=== PATIENT | female | born 1945 | race Caucasian/White ===

== ENCOUNTER 2025-02-12 17:08 | Observation (INO) | payer MEDICARE, SELFPAY ==
[2025-02-12] VITALS (12 sets, daily range): BP systolic 173–240; BP diastolic 79–104; PULSE 47–63; RESP 14–19; TEMP 36.4–36.7; O2SAT 95–98
--- NOTE | ~2025-02-12 | CT_ITS ---
History: Headaches PROCEDURE: CT head without contrast. COMPARISON: None TECHNIQUE: Axial imaging of the head performed from the skull base to the vertex without IV contrast. Sagittal a nd coronal reformations obtained. DLP: 681 mGy-cm FINDINGS: The ventricles are enlarged. The dilatation of the ventricles is proportional to the degree of sulcal prominence, not uncommon in the senescent brain. Decreased attenuation is identified within the periventricular white matter, likely secondary to micr ovascular ischemic disease, in a patient of this age. There is no mass, mass effect or midline shift. There is no abnormal extra-axial fluid collection or intracranial hemorrhage. Visualized paranasal sinuses are clear. The mastoid air cells are well aerated. No acute displaced fractures within the overlying cranium. Impression: No acute intracranial hemorrhage or suspicious mass effect. Reviewed, dictated and finalized at location A. Impression: No acute intracranial hemorrhage or suspicious mass effect.
--- NOTE | ~2025-02-12 | CT_ITS ---
CLINICAL INDICATION: History of abdominal aortic aneurysm. Renal artery stenosis suspected. COMPARISON: Reference is made to a bilateral renal ultrasound, performed the same day. TECHNIQUE: Computed tomography angiography (CTA) of the chest was performed with 100 mL Omnipaque-350 intravenous contrast timed to evaluate the abdominal aorta and mesenteric vasculature. Coronal maxim um intensity projection 3D-reconstructions were created by the technologist. The dose-length product (DLP) was 288.79 mGy-cm. Automated exposure control and iterative reconstruction technique were emplo yed. FINDINGS/OBSERVATIONS: Visualized lower thorax:Centrilobular emphysematous change. The heart is enlarged, without pericardial effusion. Liver: The liver enhances homogeneously, and is not enlarged. Gallbladder and biliary system: The gallbladder is only minimally distended, and otherwise unremarkab le. Pancreas: Pancreas demonstrates homogeneous enhancement without ductal dilatation. Spleen: The spleen enhances homogeneously and is not enlarged. Kidneys: Large bilateral renal cysts, better characterized on the ultrasound examination, performed t he same day. Adrenal glands: Unremarkable Gastrointestinal tract: Extensive fecal stasis within the colon. Appendix:The appendix is not definitively visualized. However, no pericecal inflammatory change is id entified suggest the presence of acute appendicitis. Vasculature: Aneurysmal dilatation of the juxtarenal abdominal aorta with significant mural thrombus. The aneurysm (excluding the mural thrombus) measures 3.5 x 3.7 x 8.9 cm (anterior to posterior x med ial to lateral x cranial to caudal dimension). No calcified atherosclerotic disease is identified within the origins of the bilateral renal arteries , as detailed above. Lymph nodes: No pathologically enlarged or morphologically suspicious lymph nodes within the root of the mesentery or the retroperitoneum. Pelvic structures:The bladder is minimally distended. The uterus is moderately enlarged for a patient of this age. The uterus is retroverted and retroflexed. Body wall and musculoskeletal: Age appropriate degenerative disease within the lumbosacral spine. 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 No renal artery stenosis. Reviewed, dictated and finalized at location A.
--- NOTE | ~2025-02-12 | XR_ITS ---
CHEST RADIOGRAPH CLINICAL HISTORY: HTN . COMPARISON: None available TECHNIQUE: Single portable view of the chest. FINDINGS The cardiomediastinal silhouette is unremarkable. The lungs are clear. IMPRESSION: No focal infiltrate or effusion. Reviewed, dictated and finalized at location A.
--- NOTE | ~2025-02-12 | MR_ITS ---
EXAMINATION: MR brain/brain stem wo con DATE: 02/14/2025 10:24 INDICATION: Hypertensive crisis altered mental status. Assess for stroke. TECHNIQUE: Magnetic resonance imaging (MRI) of the brain and brainstem was performed without intraven ous contrast. Sequences included sagittal and axial T1-weighted SE, axial diffusion-weighted FS SE, a xial 3D SWAN, axial T2-weighted FLAIR, and axial T2-weighted FSE. Apparent diffusion coefficient (ADC ) maps were created. COMPARISON: CT dated 02/12/2025 FINDINGS: There are no areas of restricted diffusion to suggest acute infarction. There is encephalomalacia con sistent with chronic small infarct in the right cerebral hemisphere. There are a few foci of suscepti bility artifact consistent with sequela of old blood products in the adjacent right cerebellar hemisp here. Additional small foci susceptibility artifact medially the cerebellar vermis, bilaterally in th e ben, in the bilateral basal ganglia and bilateral parietal lobes, consistent with sequela of chron ic microhemorrhage likely related to reported history of hypertension. No acute intracranial hemorrha ge or abnormal intracranial mass lesion. There are scattered areas of nonspecific increased T2-weight ed signal intensity in the cerebral and pontine white matter, predominantly involving the deep and pe riventricular white matter. There are no intraparenchymal signal abnormalities seen on the other puls e sequences. Symmetric prominence of the sulci consistent with mild age-appropriate diffuse cerebral volume loss. The ventricles are symmetric and normal in size. There are no abnormal extra-axial fluid collections. Flow voids are seen in the cerebral arteries on the T2-weighted sequences consistent wi th their expected patency. Visualized orbits and soft tissues are unremarkable. IMPRESSION: 1. Small old right cerebellar infarct. No acute intracranial process. 2. Numerous foci of susceptibility artifact bilateral parietal lobes and basal ganglia, ben and cere bellum consistent with sequela of chronic microhemorrhage likely related to provided history of hyper tension. 3. Age-related changes including mild diffuse volume loss and mild scattered cerebral and pontine whi te matter T2 hyperintensity consistent with chronic small vessel ischemic disease. Reviewed, dictated and finalized at location A. IMPRESSION: 1. Small old right cerebellar infarct. No acute intracranial process. 2. Numerous foci of susceptibility artifact bilateral parietal lobes and basal ganglia, ben and cerebellum consistent with sequela of chronic microhemorrhage likely related to provided history of hypertension. 3. Age-related changes including mild diffuse volume loss and mild scattered ce rebral and pontine white matter T2 hyperintensity consistent with chronic small vessel ischemic disease.
--- NOTE | ~2025-02-12 | US_ITS ---
CAROTID ULTRASOUND Ordering provider: New George MD History: . CVA . Comparison: None. Technique: Grayscale and color Doppler ultrasound examination of the carotid and vertebral artery sys tems bilaterally. Maximum peak systolic velocity (PSV) / end diastolic velocity (EDV) measurements we re obtained. FINDINGS: RIGHT: --Proximal COMMON CAROTID ARTERY: PSV is 42.6 cm/s. EDV is 6.3 cm/s. --Middle COMMON CAROTID ARTERY: PSV is 51.7 cm/s. EDV is 15.4 cm/s. --Distal COMMON CAROTID ARTERY: PSV is 51 cm/s. EDV is 18.9 cm/s. --EXTERNAL CAROTID ARTERY: PSV is 68.3 cm/s. --INTERNAL CAROTID ARTERY PROXIMAL: PSV is 62.2 cm/s. EDV is 21.5 cm/s. --INTERNAL CAROTID ARTERY MID: PSV is 97.3 cm/s. EDV is 27 cm/s. --INTERNAL CAROTID ARTERY DISTAL: PSV is 94.1 cm/s. EDV is 29 cm/s. --VERTEBRAL ARTERY: PSV is 51.1 cm/s. Antegrade flow with normal waveform. --SYSTOLIC ICA/CCA: 1.9 --ATHEROMATOUS DISEASE: Mild. LEFT: --Proximal COMMON CAROTID ARTERY: PSV is 58.4 cm/s. EDV is 14.2 cm/s. --Mid COMMON CAROTID ARTERY: PSV is 64.5 cm/s. EDV is 15.7 cm/s. --Distal COMMON CAROTID ARTERY: PSV is 52.3 cm/s. EDV is 16.7 cm/s. --EXTERNAL CAROTID ARTERY: PSV is 69.4 cm/s. --INTERNAL CAROTID ARTERY PROXIMAL: PSV is 89.1 cm/s. EDV is 24 cm/s. --INTERNAL CAROTID ARTERY MID: PSV is 58.4 cm/s. EDV is 19.1 cm/s. --INTERNAL CAROTID ARTERY DISTAL: PSV is 60.9 cm/s. EDV is 17.9 cm/s. --VERTEBRAL ARTERY: PSV is 35.5 cm/s. Antegrade flow with normal waveform. --SYSTOLIC ICA/CCA: 1.7 --ATHEROMATOUS DISEASE: Mild. --OTHER: None. IMPRESSION: 1. Normal bilateral carotids. 2. Antegrade flow demonstrated within both vertebral arteries. Reviewed, dictated and finalized at location A.
--- NOTE | ~2025-02-12 | US_ITS ---
US renal BI Ordering provider: New George MD History: . HTN . Comparison: None. Technique: Ultrasound bilateral kidneys. Findings: RIGHT KIDNEY: Measures 8.7x 5.6x 4.9 cm in length which is normal in size. Simple cyst is seen in the upper pole which measures 1.1 x 1.2 x 1.2 cm.. No renal mass or visualized echogenic stones. Otherwi se, normal echotexture and contour. No hydronephrosis. Normal renal cortical thickness. LEFT KIDNEY: Measures 8.4x 4.7x 1.9 cm in length which is normal in size. Inferior pole simple cyst i s seen measuring 9.8 x 7.9 x 5.2 cm. Inferior pole cyst also seen measuring 1.1 x 1.1 x 0.9 cm. Stone in the upper pole is seen measuring 0.4 x 0.4 x 0.5 cm.. No renal mass. Otherwise, normal echotextur e and contour. No hydronephrosis. Normal renal cortical thickness. BLADDER: Normal. Ureteral jets were seen bilaterally. IMPRESSION: Bilateral renal cysts with the largest in the left kidney lower pole. Left kidney stone with no hydronephrotic changes. Reviewed, dictated and finalized at location A.
--- NOTE | 2025-02-12 20:25 | ECG_ITS ---
Test Date: 2025-02-12 20:38:25 Measurements Intervals [place] Rate: 50 P: -54 [place]: 158 QRS: -36 QRSD: 98 T: 64 QT: 447 QTc: 408 Interpretive Statements SINUS RHYTHM LEFT VENTRICULAR HYPERTROPHY AND ST-T CHANGE [VOLTAGE CRITERIA PLUS ST/T ABNORMALITY] No previous ECG available for comparison Electronically Signed On 02-13-2025 13:59:01 CDT by Ranjan Martines M.D.
[2025-02-12] MEDS: niCARdipine 20 MG/200 ML 20 MG/200 ML BAG 50 MG IV CONT (20:33)
--- NOTE | 2025-02-12 20:34 | ED.GENADULT ---
HPI - General Adult General Chief complaint: Recheck/Abnormal Lab/Rx Stated complaint: elevated BP Time Seen by Provider: 02/12/25 20:20 History of Present Illness HPI narrative: 79-year-old female presenting to the emergency department for evaluation for hypertension. Patient reports that she does take medication for her blood pressure but is unsure what she takes. Patient thinks she has been getting her medications. Patient does complain headache prior to arrival. Patient's initial blood pressure in the emergency department was 240 systolic but did improved to 212 systolic without medications. Related Data Home Medications ?Medication ?Instructions ?Recorded ?Confirmed ?Last Taken ?Type acetaminophen 325 mg capsule 650 mg PO BID PRN fever or pain 02/13/25 02/13/25 Unknown History atenolol 25 mg tablet 25 mg PO DAILY 02/13/25 02/13/25 02/12/25 History atorvastatin 10 mg tablet 10 mg PO QPM 02/13/25 02/13/25 02/12/25 History donepezil 5 mg tablet 5 mg PO DAILY 02/13/25 02/13/25 02/12/25 History duloxetine 60 mg capsule,delayed 60 mg PO DAILY 02/13/25 02/13/25 02/12/25 History release losartan 100 mg tablet 100 mg PO DAILY 02/13/25 02/13/25 02/12/25 History Allergies Allergy/AdvReac Type Severity Reaction Status Date / Time Penicillins Allergy Unknown Unknown Verified 02/13/25 00:53 Review of Systems Review of Systems: All systems reviewed & are unremarkable except as noted in HPI and below PMFSH Social History Social History Smoking packs per day: 1 Smoking cigarettes per day: 20.0 Years smoked: 50 Smoking pack-years: 50.00 Smoking status: Former smoker Tobacco type: cigarettes and e-cigarettes/vaping Alcohol intake: former Substance use: never Do You Feel Safe in your Home?: Yes Lack of Transportation: No Lack of Food: Never True Current Housing: I Have Housing Concerned About Future Housing: No Difficulty Paying Gas/Electric Bills: No Difficulty Paying for Meds: No Currently Unemployed: No Education: Don't Know Difficulty w/ Childcare or Family Care: No Spiritual care concerns: No Exam Narrative: APPEARANCE: Well appearing, no pain, no distress, well-nourished. HEAD: normocephalic, atraumatic. EYES: PERRLA/EOMI, conjunctivae clear. NOSE: Normal no drainage EARS:TMS clear with good light reflex. THROAT: Pharynx clear, no exudate. NECK: Supple. No adenopathy, no masses. RESPIRATORY: Airway patent, respirations nonlabored. Clear to auscultation bilaterally, no rales, rhonchi, wheezing. CARDIOVASCULAR: Regular rate and rhythm without murmurs rubs or gallops. ABDOMINAL: Soft, nontender, nondistended, normal bowel sounds MUSCULOSKELETAL: Moves all extremities. Strength/ROM intact, No edema, No calf tenderness. NEURO: Alert. Cranial nerves II through XII intact. Good gait. Good coordination SKIN: Warm, dry. Normal Color Course Vital Signs Vital signs: Vital Signs Temperature 98.1 F 02/12/25 17:55 Pulse Rate 52 L 02/12/25 17:55 Respiratory Rate 16 02/12/25 17:55 Blood Pressure 217/95 H 02/12/25 17:55 Pulse Oximetry 98 02/12/25 17:55 Temperature 98.0 F 02/13/25 07:43 Pulse Rate 66 02/13/25 07:43 Respiratory Rate 20 02/13/25 07:43 Blood Pressure 172/77 H 02/13/25 07:43 Pulse Oximetry 95 02/13/25 07:43 Oxygen Delivery Room Air 02/13/25 04:00 Medical Decision Making [facility] Narrative Medical decision making narrative: 79-year-old female presents emergency department for evaluation for hypertensive urgency. At time of initial evaluation patient was declining any headache. Patient's initial blood pressure was 240 systolic. Patient's blood pressure dropped to approximately 160 on the Cardene drip and this was stopped. Patient's blood pressure then we increased to approximately 190 but did initially respond to hydralazine. Patient was given her p.o. dose of losartan. Case was discussed with hospitalist patient was accepted for admission to the IMU. Patient is currently afebrile with no leukocytosis and hemoglobin of 12.3. Patient has no acute abnormalities on her electrolytes or creatinine. Head CT was negative and chest x-ray shows no acute cardiopulmonary abnormality. Differential Diagnosis Differential Diagnosis: Hypertensive urgency, hypertensive crisis, ACS, subdural hematoma, subarachnoid hemorrhage, intraparenchymal bleed, cardiomegaly, pulmonary Vital Signs Vital Signs: Vital Signs Temperature 98.1 F 02/12/25 17:55 Pulse Rate 52 L 02/12/25 17:55 Respiratory Rate 16 02/12/25 17:55 Blood Pressure 217/95 H 02/12/25 17:55 Pulse Oximetry 98 02/12/25 17:55 Temperature 98.0 F 02/13/25 07:43 Pulse Rate 66 02/13/25 07:43 Respiratory Rate 20 02/13/25 07:43 Blood Pressure 172/77 H 02/13/25 07:43 Pulse Oximetry 95 02/13/25 07:43 Oxygen Delivery Room Air 02/13/25 04:00 Lab Data Lab results reviewed: Yes I reviewed the patient's lab results. 02/12/25 21:31 02/12/25 21:31 Labs: Lab Results 02/12/25 02/12/25 Range/Units 21:31 21:31 WBC 5.6 (4.5-10.0) K/mm3 RBC 4.16 L (4.2-5.4) M/mm3 Hgb 12.3 (12.0-15.0) g/dL Hct 39.3 (37.0-47.0) % MCV 94.5 (80-100) fl MCH 29.6 (26-34) pg MCHC 31.3 L (32-36) g/dl RDW 14.4 (11.5-14.5) % Plt Count 183 (150-375) k/mm3 MPV 10.4 (7.4-10.4) fl Immature Gran % (Auto) 0.5 (0-0.5) % Neut % (Auto) 51.6 (45.5-73.1) % Lymph % (Auto) 38.0 (18.3-44.2) % [place] % (Auto) 8.3 (2.6-8.5) % Eos % (Auto) 1.2 (0-4.4) % Baso % (Auto) 0.4 (0.2-1.2) % Lymph # (Auto) 2.14 (0.9-3.2) K/mm3 [place] # (Auto) 0.5 (0.1-0.6) K/mm3 Eos # (Auto) 0.1 (0-0.3) K/mm3 Baso # (Auto) 0.0 (0.0-0.1) K/mm3 Abs Immat Gran (auto) 0.03 (0.00-0.031) K/mm3 Absolute Neuts (auto) 2.9 (1.3-6.7) K/mm3 Absolute Nucleated RBC 0.000 (0.0-0.012) K/mm3 Nucleated RBC % 0.0 (0.0-0.2) % PT 13.3 (11.1-14.7) Seconds INR 1.0 APTT 28.6 (22.3-36.8) Seconds Sodium 139 (137-145) mmol/L Potassium 3.7 (3.4-5.0) mmol/L Chloride 104 (98-107) mmol/L Carbon Dioxide 30 (22-30) mmol/L Anion Gap 5 (4-12) mmol/L BUN 20 H (7-17) mg/dL Creatinine 0.81 (0.7-1.0) mg/dL Estim Creat Clear Calc 45 ml/min Estimated GFR > 60 (59 - ) Glucose 92 (65-110) mg/dL Calcium 9.7 (8.4-10.2) mg/dL Total Bilirubin 0.7 (0.2-1.3) mg/dL AST 35 (14-36) U/L ALT 18 (6-35) U/L Alkaline Phosphatase 72 (38-126) U/L Troponin I 0.013 (0.000-0.034) ng/mL NT-Pro-B Natriuret Pep 1030 H Cancelled (19.9-100) pg/mL Total Protein 7.0 (6.3-8.2) g/dL Albumin 4.3 (3.5-5.1) g/dL Imaging Data Radiologist's impression: Impressions Chest X-Ray 02/12/25 20:44 IMPRESSION: No focal infiltrate or effusion. Head CT 02/12/25 20:51 Impression: No acute intracranial hemorrhage or suspicious mass effect. Discharge Plan Discharge Clinical Impression: Hypertensive urgency Patient Disposition: Still a Patient Condition: Serious
[2025-02-12] MEDS: hydrALAZINE HCL 20 MG/ML VIAL 10 MG IV PUSH ×2 (21:26→23:53)
[2025-02-12 21:39] LABS: Basophils Percent Auto 0.4 % (0.2-1.2); Eosinophils Absolute Auto 0.1 K/mm3 (0-0.3); Eosinophils Percent Auto 1.2 % (0-4.4); Hematocrit 39.3 % (37.0-47.0); Hemoglobin 12.3 g/dL (12.0-15.0); Immature Granulocyte Absolute 0.03 K/mm3 (0.00-0.031); Immature Granulocyte Percent A 0.5 % (0-0.5); Lymphocytes Absolute Auto 2.14 K/mm3 (0.9-3.2); Mean Corpuscular HGB Conc 31.3 g/dl (32-36); Mean Corpuscular Hemoglobin 29.6 pg (26-34); Mean Corpuscular Volume 94.5 fl (80-100); Mean Platelet Volume 10.4 fl (7.4-10.4); Monocytes Absolute Auto 0.5 K/mm3 (0.1-0.6); Monocytes Percent Auto 8.3 % (2.6-8.5); Neutrophils Absolute Auto 2.9 K/mm3 (1.3-6.7); Neutrophils Percent Auto 51.6 % (45.5-73.1); Platelet Count Result 183 k/mm3 (150-375); Red Blood Count 4.16 M/mm3 (4.2-5.4); Red Cell Distribution Width 14.4 % (11.5-14.5); White Blood Count 5.6 K/mm3 (4.5-10.0)
--- OUTSIDE RECORDS SUMMARY | 2025-02-12 21:42 | XMS_ITS | Continuity of Care Document ---
Author Organization [facility] Address [address] [place] [address] Phone Care Team Providers Care Director Internal Control Name Role Phone Aly Decker MD Unavailable Unavailable Allergies, Adverse Reactions, Alerts Substance Reaction Status Criticality Penicillins Active No Information Medications Medication Instructions Dosage Effective Dates (start - stop) Status Comments [place] 5 mg-325 mg tablet take 1-2 tablet by mouth every 4- 6 hours as needed for pain - Active Enteric Coated Aspirin 325 mg tablet,delayed release Take 1 tablet po bid with food - Active Ultram 50 mg tablet take 1-2 tablets (50MG) by mouth every 4-6 hours as needed for pain. Maximum of 8 tablets per day. - Active LISINOPRIL (unknown strength) Not Available - Active PRAVASTATIN SODIUM (unknown strength) Not Available - Active VALACYCLOVIR (unknown strength) Not Available - Active STANBACK ANALGESIC (unknown strength) Not Available - Active Procedures Procedure Date POSTOP FOLLOW-UP VISIT OFFICE/OUTPATIENT VISIT EST MU Reporting POSTOP FOLLOW-UP VISIT MU Reporting POSTOP FOLLOW-UP VISIT MU Reporting OFFICE/OUTPATIENT VISIT EST MU Reporting OFFICE/OUTPATIENT VISIT EST MU Reporting OFFICE/OUTPATIENT VISIT EST MU Reporting POSTOP FOLLOW-UP VISIT MU Reporting OFFICE/OUTPATIENT VISIT NEW Advance Directives Directive Yes / No Effective Date File Name No Information Encounters Encounter Description Practice Location Reason(s) For Visit Diagnoses Date Provider Providers Copied on Encounter [facility] , [address], [place], [address], [place] tel:[phone] [facility] Primary osteoarthritis of left kneePrimary osteoarthritis of right knee Apr- 3-201 6 Brianne Lu. [address], [place], [place], [id number] . tel: [phone] [facility] , [address] [address], [place], [address], [place] tel:[phone] [facility] Primary osteoarthritis of both knees Mar-1 8-201 6 Adarshdali Kyra. [address], [place], [place], [id number] . tel: [phone] [facility] , [address] [facility] [address] [address], [place], [address], [place] tel:[phone] [facility] Osteoarthrosis, unspecified whether generalized or localized, involving lower leg Mar-0 9-201 5 Brianne Lu. [address], [place], [place], [id number] . tel: [phone] [facility] , [address] [facility] [address], [place], [address], [place] tel:[phone] [facility] Osteoarthrosis, unspecified whether generalized or localized, involving lower leg Feb-2 6-201 5 Brianne Lu. [address], [place], [place], [address] . tel: [phone] OFFICE/OUTPAT IENT VISIT EST [facility] , [address] [facility] [address], [place], [address], [place] tel:[phone] [facility] Osteoarthrosis, unspecified whether generalized or localized, involving lower leg Feb-1 9-201 5 Brianne Lu. [address], [place], [place], [id number] . tel: [phone] Referring Provider: Evangelina Zaman, [address] [facility], [address], [place], [address]. tel:[phone] [facility] , [address], [place], [address], [place] [phone] [facility] Aftercare following surgeryKnee & lower leg pain 3 Brianne Lu. [address], [place], [place], [address] . tel: [phone] Referring Provider: Araceli Espinoza, [address] [place] [address], [address]. tel:[phone] [facility] , [address] [address], [place], [address], [place] [phone] [facility] Aftercare following surgery 3 Brianne Lu. [address], [place], [place], [address] . tel: [phone] Referring Provider: Araceli Espinoza, [address] [place] [address], [address]. tel:[phone] [facility] , [address] [address], [place], [address], [place] tel:[phone] [facility] No Information 3 Brianne Lu. [address], [place], [place], [id number] . tel: [phone] OFFICE/OUTPAT IENT VISIT EST [facility] , [address], [place], [address], [place] [phone] [facility] Tear of medial cartilage or meniscus of knee, current 3 Brianne Lu. [address], [place], [place], [id number] . tel: [phone] Referring Provider: Araceli Espinoza, [address] [place], [address]. tel:[phone] OFFICE/OUTPAT IENT VISIT EST [facility] , [address], [place], [address], [place] [phone] [facility] Osteoarthrosis, localized, primary, involving lower legOsteoarthros is, unspecified whether generalized or localized, involving lower legTear of medial cartilage or meniscus of knee, current 3 Ashliund Aly. [address], [place], [place], [id number] . tel: [phone] Referring Provider: Araceli Espinoza, [address] [place] [address], [address]. tel:[phone] OFFICE/OUTPAT IENT VISIT EST [facility] , [address] [address], [place], [address], [place] tel:[phone] [facility] Unspecified internal derangement of knee 3 Ashliund Aly. [address], [place], [place], [id number] . tel: [phone] Referring Provider: Araceli Espinoza, [address] [place] [address], [address]. tel:[phone] [facility] , [address] [address], [place], [address], [place] [phone] [facility] Osteoarthrosis, localized, primary, involving lower leg 3 Ashliund Aly. [address], [place], [place], [address] . tel: [phone] Referring Provider: Araceli Espinoza, [address] [place] [address], [address]. tel:[phone] [facility] , [address] [address], [place], [address], [place] tel:[phone] [facility] Osteoarthrosis, localized, primary, involving lower leg 3 Sigmund Aly. [address], [place], [place], [id number] . tel: [phone] OFFICE/OUTPAT IENT VISIT NEW [facility] , [address], [place], [address], [place] tel:[phone] [facility] Hypertension, UnspecifiedOste oarthrosis, unspecified whether generalized or localized, involving lower legPain in joint involving lower leg 3 Brianne Lu. [address], [place], [place], [address] . tel: [phone] Referring Provider: Araceli Espinoza, [address] [place] [address], [place], [address]. tel:[phone] Family History Family Member Type Diagnosis Age At Onset Problem (finding) Family history of Renal disease Problem (finding) Family history of hyper tension Problem (finding) Family history of malignant neoplasm of male breast Problem (finding) Family history of strok e Payers Payer name Insurance type Covered republican ID Authoriza tion(s) Medicare E2 OT [id number] [employer] [facility] E2 OT [id number] Social History Type Description Quantity Date Captured Comments Alcohol Use Details Unknown Caffeine Use Details Unknown Tobacco Use Status Smoking Status No Information Sex Female Chief Complaint And Reason For Visit No Information Reason For Referral Reason For Referral No Information Plan Of Treatment Date Type Action Status Referral Ordered: MRI ANY JT UXTR C-MATRL RT knee Appointment date/timeframe: 04/02/2013 ordered Referral Ordered: INJECTION Bilateral knee ordered Referral Ordered: RADEX KNE 3 VIEWS Bilateral ordered History Of Present Illness Encounter Date Complaint History Of Prese nt Illness No Information Functional Status Date Functional Assessmen t No Information Instructions Date Instruction Additional Infor mation Weight loss reduces stress on joints. Related to Primary osteoarthritis of left knee Benefits of Glucosamine/Chondroi tin Related to Primary osteoarthritis of left knee Weight loss reduces stress on joints. Related to Osteoarthrosis, unspecified whether generalized or localized, involving lower leg Benefits of Glucosamine/Chondroi tin Related to Osteoarthrosis, unspecified whether generalized or localized, involving lower leg Weight loss reduces stress on joints. Related to Osteoarthrosis, unspecified whether generalized or localized, involving lower leg Benefits of Glucosamine/Chondroi tin Related to Osteoarthrosis, unspecified whether generalized or localized, involving lower leg OTC anti-inflammatories (NSAIDs) Protective activity ROM as tolerated Relative rest ROM as tolerated Protective activity Discussed post-opera tive precautions Protective activity ROM as tolerated ROM as tolerated Discussed post-opera tive precautions Protective activity Relative rest ROM as tolerated Protective activity ROM as tolerated Protective activity Continue medication as prescribe d ROM as tolerated Protective activity Continue medication as prescribe d Ice as instructed Assessments Type Assessment Date assessment Primary osteoarthritis of left k nee assessment Primary osteoarthritis of right knee Patient Care Teams Name Effective Dates (start - stop) Status Members No Information
[2025-02-12 21:49] LABS: Alanine Aminotransferase 18 U/L (6-35); Albumin Level 4.3 g/dL (3.5-5.1); Alkaline Phosphatase 72 U/L (38-126); Anion Gap 5 mmol/L (4-12); Aspartate Amino Transferase 35 U/L (14-36); Bilirubin,Total 0.7 mg/dL (0.2-1.3); Blood Urea Nitrogen 20 mg/dL (7-17); Calcium 9.7 mg/dL (8.4-10.2); Carbon Dioxide 30 mmol/L (22-30); Chloride 104 mmol/L (98-107); Estimated CRCL calculation 45 ml/min; Estimated Glomerular Filt Rate > 60; Glucose 92 mg/dL (65-110); Potassium 3.7 mmol/L (3.4-5.0); Sodium 139 mmol/L (137-145)
[2025-02-12 22:05] LABS: Partial Thromboplastin Time 28.6 Seconds (22.3-36.8); Prothrombin Time 13.3 Seconds (11.1-14.7)
[2025-02-12] MEDS: LOSARTAN POTASSIUM 100 MG TABLET PO (22:26)
[2025-02-12 23:28] LABS: NT Pro B Type Natriuretic Pept 1030 pg/mL (19.9-100); Troponin I 0.013 ng/mL (0.000-0.034)
--- NOTE | 2025-02-12 23:44 | PC.NURSE ---
MD made aware of BP, refer to [facility] for medication administration.
[2025-02-13] VITALS (20 sets, daily range): BP systolic 144–175; BP diastolic 72–90; PULSE 54–71; RESP 16–20; TEMP 36.4–36.9; O2SAT 94–99; BMI 19.5
--- NOTE | 2025-02-13 | ECHO_ITS ---
Patient Info Name: Lindsey Luevano Age: 79 years : 1945 Gender: Female Ht: 66 in Wt: 128 lbs BSA: 1.64 m2 HR: 58 bpm BP: 154 / 81 mmHg Technical Quality: Fair Exam Date: 02/13/2025 10:51 AM Patient Status: O Admit Date: 02/12/2025 Exam Type: CA echo doppler color flow Complete two-dimensional, color flow and Doppler transthoracic echocardiogram is performed. Staff Referring Physician: New George Coffee Maker: Marry Thompson Attending Provider: New George Summary 1. Complete two-dimensional, color flow and Doppler transthoracic echocardiogram is performed. 2. The left ventricle is normal in size and systolic function. There is severe concentric left ventricular hypertrophy. The left ventricular ejection fraction is visually estimated to be 60-65%. There is grade 2 diastolic dysfunction. 3. The right ventricle is normal in size and systolic function. 4. There are no significant valvular abnormalities. Left Ventricle The left ventricle is normal in size and systolic function. There is severe concentric left ventricular hypertrophy. The left ventricular ejection fraction is visually estimated to be 60-65%. There is grade 2 diastolic dysfunction. Right Ventricle The right ventricle is normal in size and systolic function. Left Atria The left atrium is normal size. Right Atria The right atrium is normal size. Atrial Septum The atrial septum is not well visualized. Aortic Valve The aortic valve is not well visualized. There is no hemodynamically significant Doppler gradients across the valve. There is trace aortic regurgitation by color Doppler. Pulmonic Valve The pulmonic valve is not well visualized. There is no color Doppler evidence of pulmonic valve regurgitation. Mitral Valve The mitral valve leaflets are thickened. There is no mitral stenosis. There is no mitral regurgitation. Tricuspid Valve The tricuspid valve opens well. There is mild tricuspid regurgitation. Pericardium/Pleural Pericardium is normal in appearance with no evidence for significant pericardial effusion. Inferior Vena Cava Normal inferior vena cava with >50% collapse upon inspiration consistent with normal right atrial pressure, 3 mmHg. Aorta The aortic root at the level of the sinus of Valsalva is mildly dilated measuring 4.0 cm in diameter. Left Ventricular Outflow Tract Name Value Normal LVOT 2D LVOT Diameter 2.0 cm LVOT Doppler LVOT Peak Velocity 153 cm/s LVOT Peak Gradient 9 mmHg LVOT Mean Gradient 6 mmHg LVOT VTI 36 cm LVOT VTI/AV VTI Ratio 1.0 LVOT Stroke Volume 115 ml LVOT CO 6.3 l/min LVOT CI 3.8 l/min/m2 Pulmonic Valve Name Value Normal RVOT Doppler RVOT Peak Velocity 66 cm/s RVOT Peak Gradient 2 mmHg PV Doppler PV Peak Velocity 99 cm/s PV Peak Gradient 4 mmHg Mitral Valve Name Value Normal MV Diastolic Function MV E Peak Velocity 47 cm/s MV A Peak Velocity 94 cm/s MV E/A 0.5 MV Decel Time (PW) 256 ms MV Annular TDI MV E/e' (Septal) 21.2 MV E/e' (Lateral) 15.6 MV E/e' (Average) 18.4 Tricuspid Valve Name Value Normal TV Regurgitation Doppler TR Peak Velocity 233 cm/s TR Peak Gradient 19 mmHg Estimated PAP/RSVP RA Pressure 3 mmHg <=5 PA Systolic Pressure 25 mmHg <36 RV Systolic Pressure 25 mmHg <36 TV Annular TDI TV Lateral Crystal s' Velocity 16.9 cm/s >=9.5 Aortic Valve Name Value Normal AV Doppler AV Peak Velocity 151 cm/s AV Peak Gradient 9 mmHg AV Mean Gradient 5 mmHg AV VTI 35 cm AV Area (Cont Eq VTI) 3.3 cm2 >=3.0 AV Area (Cont Eq Bj) 3.2 cm2 AV DI (Bj) 1.02 AV Regurgitation 2D LVOT Area 3.2 cm2 Ventricles Name Value Normal LV Dimensions 2D/MM IVS Diastolic Thickness (2D) 2.2 cm 0.6-1.0 LVID Diastole (2D) 4.0 cm 3.8-5.2 LVIW Diastolic Thickness (2D) 1.0 cm 0.6-0.9 LVID Systole (2D) 2.4 cm 2.2-3.5 LVOT Diameter 2.0 cm LV Mass (2D Cubed) 256.78 g 67.00-162.00 LV Mass Index (2D Cubed) 156 g/m2 43-95 Relative Wall Thickness (2D) 0.49 <=0.42 LV Fractional Shortening/Ejection Fraction 2D/MM LV Fractional Shortening (2D) 44 % 27-45 LV EF (2D Teichholz) 72 % LV Diastolic Volume (4C MOD) 130 ml LV EF (4C MOD) 74 % LV Diastolic Volume (2C MOD) 119 ml LV EF (2C MOD) 60 % LV Diastolic Volume (BP MOD) 124 ml 46-106 LV Diastolic Volume Index (BP MOD) 76 ml/m2 29-61 LV Systolic Volume (BP MOD) 41 ml 14-42 LV Systolic Volume Index (BP MOD) 25 ml/m2 8-24 LV EF (BP MOD) 67 % 54-74 LV Diastolic Length (4C) 8.6 cm LV Systolic Length (4C) 6.8 cm LV Stroke Volume (4C MOD) 96 ml LV CO (BP MOD) 0.0 l/min LV CI (BP MOD) 0.0 l/min/m2 Atria Name Value Normal LA Dimensions LA Volume (4C A-L) 65 ml LA Volume (BP A-L) 56 ml Report Signatures
--- NOTE | 2025-02-13 00:20 | ADMGEN ---
This patient, Lindsey Luevano, was admitted to IMU Room 231-01 at 0005. Patient/family oriented to hospital policies and general routines including ID bracelet, bed and alarms, visiting hours, pain management, procedures, bathroom and other care routines, personal items, smoking policy, room service/diet, and visiting hours. Information on how to activate the Rapid Response Team has been discussed. Patient/Family are encouraged to report perceived risks to care and to ask questions if they do not understand what they are told or what they should do.
[2025-02-13 06:17] LABS: Add Urine Microscopic? NO; Appearance Urine Clear (Clear); Bilirubin Urine Negative (Negative); Blood Urine Negative (Negative); Color Urine Yellow (Yellow); Glucose Urine UA Negative (Negative); Ketones Urine Trace mg/dL (Negative); Leukocyte Esterase Ur Negative LEU/UL (Negative); Nitrate Urine Negative (Negative); Protein Urine Negative (Negative); Specific Grav Ur 1.009 (1.001-1.035); Urobilinogen Urine 0.2 mg/dL (<2.0); pH Urine 7.5 (5.0-9.0)
--- NOTE | 2025-02-13 09:12 | PM.IMHP ---
H&P: HPI History of Present Illness Date/Time: 02/13/25 09:12 Chief Complaint: Hypertension Narrative: 79-year-old female with with past medical history of hypertension, and hyperlipidemia visited ER due to hypertension emergency. Pertinent ED labs: WBC 5.6, hemoglobin 12.3, hematocrit 39.3, platelet 183, sodium 139, potassium 3.7, BUN 20, creatinine 0.8, GFR greater than 60 BNP 1030 UA no evidence of UTI Patient is admitted in the setting of hypertensive emergency. Patient presented with the systolic blood pressure into 40s. In the ED patient was started on nicardipine drip under and blood pressure dropped in approximately in 160s. Patient was given hydralazine and losartan. Patient restarted on home med and will be monitored. Although patient is AO x3 but sometimes confused. Patient reports she lives with her daughter but sometime not. Will call the family and obtain her baseline. Ordered brain MRI Review of Systems Review of Systems: All systems reviewed & are unremarkable except as noted in HPI and below PMFSH Social History Social History Smoking packs per day: 1 Smoking cigarettes per day: 20.0 Years smoked: 50 Smoking pack-years: 50.00 Smoking status: Former smoker Tobacco type: cigarettes and e-cigarettes/vaping Alcohol intake: former Substance use: never Do You Feel Safe in your Home?: Yes Lack of Transportation: No Lack of Food: Never True Current Housing: I Have Housing Concerned About Future Housing: No Difficulty Paying Gas/Electric Bills: No Difficulty Paying for Meds: No Currently Unemployed: No Education: Don't Know Difficulty w/ Childcare or Family Care: No Spiritual care concerns: No Meds Home Medications and Allergies Home Medications ?Medication ?Instructions ?Recorded ?Confirmed ?Type acetaminophen 325 mg capsule 650 mg PO BID PRN fever or pain 02/13/25 02/13/25 History atenolol 25 mg tablet 25 mg PO DAILY 02/13/25 02/13/25 History atorvastatin 10 mg tablet 10 mg PO QPM 02/13/25 02/13/25 History donepezil 5 mg tablet 5 mg PO DAILY 02/13/25 02/13/25 History duloxetine 60 mg capsule,delayed 60 mg PO DAILY 02/13/25 02/13/25 History release losartan 100 mg tablet 100 mg PO DAILY 02/13/25 02/13/25 History Allergies Allergy/AdvReac Type Severity Reaction Status Date / Time Penicillins Allergy Unknown Unknown Verified 02/13/25 00:53 Vital Signs Vital Signs - 24 hr 02/12/25 17:55 02/12/25 20:10 02/12/25 20:32 Temperature 98.1 F Pulse Rate 52 L 47 L 52 L Respiratory Rate 16 18 15 Blood Pressure 217/95 H 240/98 H 212/95 H Pulse Oximetry 98 97 97 Oxygen Delivery Room Air 02/12/25 20:33 02/12/25 20:51 02/12/25 20:56 Temperature Pulse Rate 54 L 56 L 57 L Respiratory Rate 16 Blood Pressure 212/95 H 187/79 H 187/79 H Pulse Oximetry 95 Oxygen Delivery 02/12/25 21:05 02/12/25 21:06 02/12/25 21:27 Temperature Pulse Rate 58 L 55 L 58 L Respiratory Rate 18 14 Blood Pressure 173/80 H 179/80 H 188/93 H Pulse Oximetry 95 96 Oxygen Delivery 02/12/25 23:00 02/12/25 23:28 02/12/25 23:49 Temperature 97.6 F Pulse Rate 60 62 63 Respiratory Rate 19 Blood Pressure 202/104 H 193/96 H Pulse Oximetry 95 Oxygen Delivery 02/13/25 00:20 02/13/25 00:21 02/13/25 00:22 Temperature 97.6 F Pulse Rate 65 Respiratory Rate 17 Blood Pressure 146/72 H 159/76 H 144/76 H Pulse Oximetry 98 Oxygen Delivery 02/13/25 02:00 02/13/25 03:39 02/13/25 04:00 Temperature 97.6 F Pulse Rate 64 64 Respiratory Rate 17 Blood Pressure 154/81 H Pulse Oximetry 96 Oxygen Delivery Room Air 02/13/25 04:00 02/13/25 06:00 02/13/25 07:43 Temperature 98.0 F Pulse Rate 67 68 66 Respiratory Rate 20 Blood Pressure 172/77 H Pulse Oximetry 95 Oxygen Delivery Exam Narrative: APPEARANCE: Well appearing, no pain, no distress, well-nourished. HEAD: normocephalic, atraumatic. EYES: PERRLA/EOMI, conjunctivae clear. NOSE: Normal no drainage EARS:TMS clear with good light reflex. THROAT: Pharynx clear, no exudate. NECK: Supple. No adenopathy, no masses. RESPIRATORY: Airway patent, respirations nonlabored. Clear to auscultation bilaterally, no rales, rhonchi, wheezing. CARDIOVASCULAR: Regular rate and rhythm without murmurs rubs or gallops. ABDOMINAL: Soft, nontender, nondistended, normal bowel sounds MUSCULOSKELETAL: Moves all extremities. Strength/ROM intact, No edema, No calf tenderness. NEURO: Alert. Cranial nerves II through XII intact. Good gait. Good coordination SKIN: Warm, dry. Normal Color H&P: Results Labs Labs: Short CBC 02/12/25 Range/Units 21:31 WBC 5.6 (4.5-10.0) K/mm3 Hgb 12.3 (12.0-15.0) g/dL Hct 39.3 (37.0-47.0) % Plt Count 183 (150-375) k/mm3 BMP 02/12/25 21:31 Sodium 139 Potassium 3.7 Chloride 104 Carbon Dioxide 30 BUN 20 H Creatinine 0.81 Glucose 92 Calcium 9.7 Cardiac Enzymes 02/12/25 Range/Units 21:31 Troponin I 0.013 (0.000-0.034) ng/mL Liver Function 02/12/25 Range/Units 21:31 Total Bilirubin 0.7 (0.2-1.3) mg/dL AST 35 (14-36) U/L ALT 18 (6-35) U/L Alkaline Phosphatase 72 (38-126) U/L Albumin 4.3 (3.5-5.1) g/dL Urine 02/13/25 Range/Units 06:01 Urine Color Yellow (Yellow) Urine Appearance Clear (Clear) Urine pH 7.5 (5.0-9.0) Ur Specific [place] 1.009 (1.001-1.035) Urine Protein Negative (Negative) mg/dL Urine Glucose (UA) Negative (Negative) mg/dL Assessment and Plan Assessment and plan (1) Hypertensive urgency: Code(s): I16.0 - Hypertensive urgency Status: Acute Assessment and Plan: Received Nicardipine drip Continue home med Head CT: No acute intracranial hemorrhage or suspicious mass effect. EKG: Ectopic atrial bradycardia . Left axis deviation Neuro check q.4 hours Avoid drastic lowering of blood pressure more than 25-30% in 1st 24 hours Hydralazine 10 mg IV blood pressure greater than 160/90 If recurrent vomiting/any change in mental status stat CT Avoid a labetalol due to bradycardia Echocardiogram pending DVT prophylaxis Lovenox 40 mg subQ (2) Metabolic encephalopathy: Code(s): G93.41 - Metabolic encephalopathy Status: Acute Assessment and Plan: Order vitamin B12 and folic acid Ordered TSH, syphilis, HIV Ordered brain MRI Baseline dementia Continue home dose donepezil 5 mg p.o. q.d. Plan DVT prophylaxis Lovenox 40 mg subQ daily Full code Hospitalist [facility] Advance Care Plan I have confirmed that the patient's Advanced Care Plan is present, code status is documented, or surrogate decision maker is listed in patient medical record.: Yes Medication Reconciliation I have utilized all available resources to obtain, update and review the patients current medications (includes all prescriptions, OTC, herbals, cannabis, and nutritional supplements).: Yes
[2025-02-13] MEDS: LOSARTAN POTASSIUM 100 MG TABLET PO (09:35)
[2025-02-13] MEDS: DULoxetine HCL 60 MG CAPSULE.DR PO (09:35)
[2025-02-13] MEDS: atenoloL 25 MG TABLET PO (09:35)
[2025-02-13] MEDS: DONEPEZIL HCL 5 MG TABLET PO (09:36)
[2025-02-13] MEDS: ATORVASTATIN 10 MG TABLET PO (18:18)
[2025-02-14] VITALS (13 sets, daily range): BP systolic 140–200; BP diastolic 66–93; PULSE 50–67; RESP 16–18; TEMP 36.2–36.8; O2SAT 92–99
[2025-02-14 04:08] LABS: Hematocrit 35.6 % (37.0-47.0); Hemoglobin 11.5 g/dL (12.0-15.0); Mean Corpuscular HGB Conc 32.3 g/dl (32-36); Mean Corpuscular Hemoglobin 29.9 pg (26-34); Mean Corpuscular Volume 92.5 fl (80-100); Mean Platelet Volume 9.7 fl (7.4-10.4); Platelet Count Result 187 k/mm3 (150-375); Red Blood Count 3.85 M/mm3 (4.2-5.4); Red Cell Distribution Width 14.4 % (11.5-14.5); White Blood Count 5.7 K/mm3 (4.5-10.0)
[2025-02-14 04:17] LABS: Alanine Aminotransferase 16 U/L (6-35); Albumin Level 3.7 g/dL (3.5-5.1); Alkaline Phosphatase 61 U/L (38-126); Anion Gap 5 mmol/L (4-12); Aspartate Amino Transferase 32 U/L (14-36); Bilirubin,Total 0.8 mg/dL (0.2-1.3); Blood Urea Nitrogen 23 mg/dL (7-17); Calcium 9.6 mg/dL (8.4-10.2); Carbon Dioxide 30 mmol/L (22-30); Chloride 105 mmol/L (98-107); Estimated CRCL calculation 40 ml/min; Estimated Glomerular Filt Rate > 60; Glucose 94 mg/dL (65-110); Potassium 3.4 mmol/L (3.4-5.0); Sodium 140 mmol/L (137-145)
[2025-02-14 04:46] LABS: Syphilis IgG/IgM Antibody Negative (Negative)
[2025-02-14 04:59] LABS: HIV 1/2 Ab P24 Ag Result Negative (Negative)
[2025-02-14 05:25] LABS: Folic Acid > 20.0 ng/mL (2.76->20)
[2025-02-14 06:39] LABS: Free T4 Free Thyroxine Reflex 1.22 ng/dL (0.78-2.19)
[2025-02-14 07:44] LABS: Total Triiodothyronine (T3) 1.21 NG/ML (0.97-1.69)
[2025-02-14] MEDS: atenoloL 25 MG TABLET PO (08:07)
[2025-02-14] MEDS: ENOXAPARIN 40 MG/0.4 ML SYRINGE SUB-Q (08:08)
[2025-02-14] MEDS: LOSARTAN POTASSIUM 100 MG TABLET PO ×2 (08:08→21:00)
[2025-02-14] MEDS: DONEPEZIL HCL 5 MG TABLET PO (08:08)
[2025-02-14] MEDS: DULoxetine HCL 60 MG CAPSULE.DR PO (08:08)
[2025-02-14] MEDS: amLODIPine BESYLATE 5 MG TABLET PO (09:16)
[2025-02-14] MEDS: ATORVASTATIN 10 MG TABLET PO (17:24)
[2025-02-15 06:00] VITALS: BP 147/88; PULSE 58; RESP 17; TEMP 36.4; O2SAT 99
[2025-02-15] MEDS: LOSARTAN POTASSIUM 100 MG TABLET PO (10:24)
[2025-02-15] MEDS: amLODIPine BESYLATE 5 MG TABLET PO (10:24)
[2025-02-15] MEDS: DULoxetine HCL 60 MG CAPSULE.DR PO (10:25)
[2025-02-15] MEDS: DONEPEZIL HCL 5 MG TABLET PO (10:25)
[2025-02-15 10:27] VITALS: PULSE 53
[2025-02-15 13:40] VITALS: BP 150/85; PULSE 58; RESP 16; TEMP 36.3; O2SAT 96
--- NOTE | 2025-02-15 15:14 | PM.DS ---
DS: Admitting Diagnosis Discharge Date 02/15/2025 Admitting Diagnosis Hypertensive emergency DS: Discharge Diagnosis Discharge Diagnosis (1) Hypertensive urgency: Code(s): I16.0 - Hypertensive urgency Status: Acute Assessment and Plan: Please refer to hospital course for brief summary Received Nicardipine drip Continue home med Head CT: No acute intracranial hemorrhage or suspicious mass effect. EKG: Ectopic atrial bradycardia . Left axis deviation Neuro check q.4 hours Avoid drastic lowering of blood pressure more than 25-30% in 1st 24 hours Hydralazine 10 mg IV blood pressure greater than 160/90 If recurrent vomiting/any change in mental status stat CT Avoid a labetalol due to bradycardia Echocardiogram pending DVT prophylaxis Lovenox 40 mg subQ (2) Metabolic encephalopathy: Code(s): G93.41 - Metabolic encephalopathy Status: Acute Assessment and Plan: Order vitamin B12 and folic acid Ordered TSH, syphilis, HIV Ordered brain MRI Baseline dementia Continue home dose donepezil 5 mg p.o. q.d. DS: Summary Hospital Course Hospital Course: 79-year-old female with with past medical history of hypertension, and hyperlipidemia visited ER due to hypertension emergency. Pertinent ED labs: WBC 5.6, hemoglobin 12.3, hematocrit 39.3, platelet 183, sodium 139, potassium 3.7, BUN 20, creatinine 0.8, GFR greater than 60 BNP 1030 UA no evidence of UTI Patient is admitted in the setting of hypertensive emergency. Patient presented with the systolic blood pressure into 40s. In the ED patient was started on nicardipine drip under and blood pressure dropped in approximately in 160s. Patient was given hydralazine and losartan. Patient restarted on home med and will be monitored. Although patient is AO x3 but sometimes confused. Patient reports she lives with her daughter but sometime not. Will call the family and obtain her baseline. Discussed with daughter who reported patient lives in a memory care unit. Performed brain MRI which shows:1. Small old right cerebellar infarct. No acute intracranial process. 2. Numerous foci of susceptibility artifact bilateral parietal lobes and basal ganglia, ben and cerebellum consistent with sequela of chronic microhemorrhage likely related to provided history of hypertension. 3. Age-related changes including mild diffuse volume loss and mild scattered cerebral and pontine white matter T2 hyperintensity consistent with chronic small vessel ischemic disease Renal ultrasound: Bilateral renal cysts with the largest in the left kidney lower pole. Left kidney stone with no hydronephrotic changes. CT abdomen/pelvis:Juxtarenal abdominal aortic aneurysm measuring 3.7 cm in anterior to posterior dimension. No renal artery stenosis. In regards to hypertension patient medication schedule has been changed. Advised to give atenolol 25 mg p.o. q.d. in the morning and losartan 100 mg p.o. HS and added amlodipine 5 mg p.o. q.d. in the morning. Patient needs strict BP control due to abdominal aortic aneurysm. 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 Patient needs to follow-up closely with the vascular surgeon. Unable to start anticoagulation due to episodes of severe hypertension which can lead to bleeding. Explained the risk and benefits of not starting the anticoagulation with the family and agrees with the plan. Status at Discharge Cognitive/behavioral status at discharge: Stable Time Spent with Patient Time attestation: Total time spent providing and/or coordinating discharge services: 45 minutes Exam Narrative: APPEARANCE: Well appearing, no pain, no distress, well-nourished. HEAD: normocephalic, atraumatic. EYES: PERRLA/EOMI, conjunctivae clear. NOSE: Normal no drainage EARS:TMS clear with good light reflex. THROAT: Pharynx clear, no exudate. NECK: Supple. No adenopathy, no masses. RESPIRATORY: Airway patent, respirations nonlabored. Clear to auscultation bilaterally, no rales, rhonchi, wheezing. CARDIOVASCULAR: Regular rate and rhythm without murmurs rubs or gallops. ABDOMINAL: Soft, nontender, nondistended, normal bowel sounds MUSCULOSKELETAL: Moves all extremities. Strength/ROM intact, No edema, No calf tenderness. NEURO: Alert. Cranial nerves II through XII intact. Good gait. Good coordination SKIN: Warm, dry. Normal Color DS: Data Imaging Radiologist's impression: ITS Impressions Chest X-Ray 02/12/25 20:44 IMPRESSION: No focal infiltrate or effusion. Head CT 02/12/25 20:51 Impression: No acute intracranial hemorrhage or suspicious mass effect. Brain MRI 02/14/25 10:34 IMPRESSION: 1. Small old right cerebellar infarct. No acute intracranial process. 2. Numerous foci of susceptibility artifact bilateral parietal lobes and basal ganglia, ben and cerebellum consistent with sequela of chronic microhemorrhage likely related to provided history of hypertension. 3. Age-related changes including mild diffuse volume loss and mild scattered cerebral and pontine white matter T2 hyperintensity consistent with chronic small vessel ischemic disease. Renal Ultrasound 02/14/25 10:36 IMPRESSION: Bilateral renal cysts with the largest in the left kidney lower pole. Left kidney stone with no hydronephrotic changes. Abdomen/Pelvis CTA 02/14/25 23:47 IMPRESSION: Juxtarenal abdominal aortic aneurysm measuring 3.7 cm in anterior to posterior dimension. No renal artery stenosis. Discharge Plan Discharge Attending physician on discharge: New George Discharging Clinician: New George Patient Disposition: [place] Residential/Asst Living Activity: as tolerated Diet: heart healthy Discharge Instructions: Patient needs to closely follow-up with vascular surgeon due to abdominal aortic aneurysm with mural thrombus. Check blood pressure 1 to 2 times a day. Record and bring into your doctor for review. Call your doctor if your blood pressure is greater than 180/110 or less than 90/45. Walk with cane or other assist device. Take precautions to avoid falls. Rise slowly from a lying or sitting position. Pause before standing or walking. Contact your doctor or call 911 and come to the Emergency Room if you have any type of trauma, lightheadedness with standing or other worrisome symptoms. Avoid NSAIDs (ibuprofen, naproxen, Aleve). Tylenol is safe to take. Follow-up with your primary care provider in 1-2 weeks. Please call for appointment. Follow-up with Cardiology in 2-4 weeks. Please call for an appointment. Thank you for using [facility] for your health care needs. Patient Instructions: Antibiotic Form, Hypertensive Crisis (GEN), Hypertension (GEN) Patient Language: Citizen Of [place] Stand Alone Forms: General Discharge Information Follow-up/Referrals: PHYSICIAN NOT ON STAFF,NONSTAFF [Primary Care Provider] - Discharge Medications: New losartan 100 mg tablet 100 mg PO QPM Qty: 60 0RF amlodipine [Norvasc] 5 mg Tablet 5 mg PO DAILY Qty: 30 0RF Continued atenolol 25 mg tablet 25 mg PO DAILY donepezil 5 mg tablet 5 mg PO DAILY atorvastatin 10 mg tablet 10 mg PO QPM duloxetine 60 mg capsule,delayed release(DR/EC) 60 mg PO DAILY acetaminophen 325 mg capsule 650 mg PO BID PRN (Reason: fever or pain) Discontinued losartan 100 mg tablet 100 mg PO DAILY Date of admission: 02/12/25 22:05 Primary Care Provider: PHYSICIAN NOT ON STAFF,NONSTAFF Admitting Provider: New George Attending physician on admission: New George Condition: Stable
[2025-02-15] MEDS: ATORVASTATIN 10 MG TABLET PO (18:10)
== END 2025-02-15 18:45 ==
LOC: ANHED 22:10 → ANHIMU 23:07 → ANH3MEDSUR 02-14 17:10
PROVIDERS: Nurse Practitioner; Admitting Provider General Practice; Emergency Provider Emergency Medicine; Visit Provider General Practice
DX: I16.1 Hypertensive emergency (principal); I10 Essential (primary) hypertension; G93.41 Metabolic encephalopathy; E78.5 Hyperlipidemia, unspecified; Z87.891 Personal history of nicotine dependence; Z79.899 Other long term (current) drug therapy; Z11.4 Encounter for screening for human immunodeficiency virus [HIV]; Z86.73 Personal history of transient ischemic attack (TIA), and cerebral infarction without residual deficits; I51.89 Other ill-defined heart diseases; I71.42 Juxtarenal abdominal aortic aneurysm, without rupture
CPT/HCPCS: 36415; 70450; 70551; 71045; 74174; 76775; 80053; 81003; 82607; 82746; 83880; 84439; 84443; 84480; 84484; 85025; 85027; 85610; 85730; 86593; 86703; 93005; 93306; 93880; 96365; 96366; 96372; 96375; 96376; 99285; A9270; G0378; G0432; J0360; J1650; J2404; Q9967